=== PATIENT | female | born 1975 | race African-American/Black ===

== ENCOUNTER 2017-03-27 19:09 | Emergency (ER) | payer MEDICAID ==
[~2017-03-27] VITALS: Ht 160 cm; Wt 83.9 kg
[2017-03-27 20:19] LABS: ABSOLUTE BASOPHILS 0.1 thou/uL (0.0-0.2); ABSOLUTE EOSINOPHILS 0.2 thou/uL (0.0-0.7); ABSOLUTE LYMPHOCYTES 2.8 thou/uL (0.8-5.3); ABSOLUTE MONOCYTES 0.4 thou/uL (0.0-1.2); ABSOLUTE NEUTROPHILS 3.1 thou/uL (1.6-8.1); BASOPHILS 1.2 %; EOSINOPHILS 3.2 %; HEMATOCRIT 37.6 % (37.0-47.0); HEMOGLOBIN 12.4 gm/dL (12.0-15.0); MCH 29.4 pg (26.0-34.0); MCV 89.1 fL (80.0-100.0); MONOCYTES 6.6 %; MPV 6.5 fl. (7.2-11.1); NUCLEATED RBCS 0 /100WBC; PLATELET COUNT* 339 thou/uL (150-400); RBC 4.22 mil/uL (4.20-5.00); RDW-CV 13.7 % (10.5-14.5); WBC 6.6 thou/uL (4.0-11.0)
[2017-03-27 20:25] LABS: CALCIUM 8.3 mg/dL (8.5-10.1); CREATININE 0.8 mg/dL (0.6-1.3); POTASSIUM 3.7 mmol/L (3.5-5.1)
[2017-03-27 20:30] LABS: ALBUMIN 3.4 g/dL (3.4-5.0); TOTAL BILIRUBIN 0.2 mg/dL (<0.1-1.0); TOTAL PROTEIN 7.3 g/dL (6.4-8.2)
[2017-03-27 20:33] LABS: INFLUENZA A ANTIGEN None Detected (None Detect); INFLUENZA B ANTIGEN None Detected (None Detect)
[2017-03-27] MEDS ORDERED: PROMETHAZINE/C118 ML PO (20:45)
[2017-03-27] MEDS ORDERED: AMOXICILLIN500 M1 PO (20:45)
[2017-03-27] MEDS ORDERED: MEDROLDOSEPACK PO (20:45)
[2017-03-27 21:33] VITALS: BP 170/100
== END 2017-03-27 21:36 | disposition home or self-care (01) ==
LOC: M.ERS 19:09
PROVIDERS: Personal Emergency Response Attendant
DX: J45.901 Unspecified asthma with (acute) exacerbation (principal); J18.1 Lobar pneumonia, unspecified organism; F17.210 Nicotine dependence, cigarettes, uncomplicated

== ENCOUNTER 2018-04-08 00:46 | Inpatient (IN) | payer OTHER ==
[~2018-04-08] VITALS: Ht 157.5 cm; Wt 82.6 kg
[~2018-04-08 00:46] MED LIST: AMOXICILLIN500 M1 PO; MEDROLDOSEPACK PO; PROMETHAZINE/C118 ML PO
[2018-04-08 00:51] VITALS: BP 122/89
[2018-04-08 01:18] LABS: HEMOGLOBIN 12.5 gm/dL (12.0-15.0); MCH 28.6 pg (26.0-34.0); MCHC 32.1 g/dL (28.0-37.0); MCV 89.1 fL (80.0-100.0); MPV 6.6 fl. (7.2-11.1); NUCLEATED RBCS 0 /100WBC; PLATELET COUNT* 338 thou/uL (150-400); RBC 4.37 mil/uL (4.20-5.00); RDW-CV 13.8 % (10.5-14.5); WBC 20.4 thou/uL (4.0-11.0)
[2018-04-08 01:22] LABS: CALCIUM 9.2 mg/dL (8.5-10.1); CREATININE 1.1 mg/dL (0.6-1.3); POTASSIUM 3.7 mmol/L (3.5-5.1)
[2018-04-08 01:24] LABS: INFLUENZA A ANTIGEN None Detected (None Detect); INFLUENZA B ANTIGEN None Detected (None Detect)
[2018-04-08 01:27] LABS: ALBUMIN 3.3 g/dL (3.4-5.0); TOTAL PROTEIN 7.9 g/dL (6.4-8.2)
[2018-04-08 02:21] LABS: ABSOLUTE BASOPHILS 0.2 thou/uL (0.0-0.2); ABSOLUTE EOSINOPHILS 0.2 thou/uL (0.0-0.7); ABSOLUTE LYMPHOCYTES 1.8 thou/uL (0.8-5.3); ABSOLUTE MONOCYTES 1.6 thou/uL (0.0-1.2); ABSOLUTE NEUTROPHILS 16.5 thou/uL (1.6-8.1); ANISOCYTOSIS Occasional; PLATELET ESTIMATE ADEQUATE; TOXIC GRANULATION 2+
[2018-04-08 03:15] VITALS: BP 119/71
[2018-04-08 04:00] VITALS: BP 122/68
--- NOTE | 2018-04-08 05:00 | NUR ---
PT ADMITTED TO ROOM 205 FROM ER VIA STRETCHER. PT MOVED SELF TO HOSPITAL BED WITHOUT DIFFICULTY. SEARCH ENGINE MARKETING MANAGER APPLIED WITH ALARMS SET. PT ORIENTED TO ROOM, BED AND TV CONTROLS AND CALL SYSTEM, PT VERBALIZED GOOD UNDERSTANDING. O2 2L BNC INTACT. NS INFUSING AT 100CC/HR VIA PUMP. VSS STABLE. PT AAOX4 SKIN W/D ZOHAIB CUTE DISTRESS NOTED WILL CONTINUE TO MONITOR
--- NOTE | 2018-04-08 08:00 | NUR ---
RECEIVED REPORT. ASSUMED CARE OF PT AT 0730. VSS. CARDIAC MONITORING IN PLACE ST WITH BBB. AM ASSESSMENT AND VITALS COMPLETED CAHRTED. PT ALERT AND OEIETNED. PT ON 2L PER NC. PT HAS NPC. PT REPORTS BACK PAIN WITH COUGH PRN PAIN MEDS GIVEN. IVF INFUISNG PER ORDERS. PT UP AD KINGS. CALL LIGHT IS WITHIN REACH. WILL CONTINUE TO MONITOR FOR DURAITON OF SHIFT.
[2018-04-08 08:11] VITALS: BP 133/83
[2018-04-08] MEDS ORDERED: VENTOLIN HFA 1818 GM INH (10:18)
[2018-04-08] MEDS ORDERED: ADVAIR HFA 230M12 GM INH (10:18)
--- NOTE | 2018-04-08 15:36 | EKG ---
[place] [address] ELECTROCARDIOGRAM REPORT Name: RONNA FAY Room: [address] ADM IN .R.#: [id number] Admission: 04/08/18 Attend Phys: Vesta Coombs Discharge: Date of : 73 Report #: [id number] THIS REPORT FOR: //name// [facility] ED Test Date: 2018-04-08 Test Time: 01:04:05 Pat Name: RONNA FAY Department: Room: [facility] Gender: F Manager Molecular: : 1975 Requested By: Sallie Clark Order Number: [id number] MD: Orville Liao Measurements Intervals [place] Rate: 128 P: 59 TN: 126 QRS: 109 QRSD: 137 T: 12 QT: 322 QTc: 470 Interpretive Statements Sinus tachycardia Left atrial enlargement Right bundle branch block Baseline wander in lead(s) V2,V4,V5 No previous ECG available for comparison Electronically Signed On 04-08-2018 15:36:03 COMPOUNDING TECHNICIAN by Orville Liao [email or web address] <ELECTRONICALLY SIGNED> By: Orville Liao MD, [facility] 04/08/18 1536 0104 0104 Orville Liao MD, [facility] /EPI
--- NOTE | 2018-04-08 16:41 | NUR ---
PATIENT TRANSFERRED FROM TELE. AGREE WITH PREVIOUS ASSESSMENT. ALERT AND ORIENTED. DENIES PAIN CURRENTLY. ORIENTED TO NEW ROOM AND ENVIROMENT. IVF INFUSING ORDERED. FAMILY AT BEDSIDE. CALL LIGHT WITHIN REACH. WILL CONTINUE TO MONITOR.
[2018-04-08 17:20] VITALS: BP 150/98
[2018-04-08 21:00] VITALS: BP 132/90
[2018-04-09] VITALS: BP 111/82
[2018-04-09 04:32] LABS: ABSOLUTE EOSINOPHILS 0.1 thou/uL (0.0-0.7); ABSOLUTE LYMPHOCYTES 1.7 thou/uL (0.8-5.3); ABSOLUTE MONOCYTES 0.9 thou/uL (0.0-1.2); ABSOLUTE NEUTROPHILS 6.6 thou/uL (1.6-8.1); BASOPHILS 0.4 %; HEMATOCRIT 31.1 % (37.0-47.0); LYMPHOCYTES 18.5 %; MCH 29.5 pg (26.0-34.0); MCHC 32.9 g/dL (28.0-37.0); MCV 89.7 fL (80.0-100.0); MONOCYTES 9.6 %; MPV 6.8 fl. (7.2-11.1); NUCLEATED RBCS 0 /100WBC; POLYS 70.5 %; RBC 3.47 mil/uL (4.20-5.00); RDW-CV 13.6 % (10.5-14.5); WBC 9.4 thou/uL (4.0-11.0)
[2018-04-09 04:51] LABS: CALCIUM 8.4 mg/dL (8.5-10.1); CREATININE 0.7 mg/dL (0.6-1.3)
[2018-04-09 04:54] LABS: HEMOGLOBIN 10.2 gm/dL (12.0-15.0); PLATELET COUNT* 255 thou/uL (150-400)
[2018-04-09 08:19] VITALS: BP 148/97
[2018-04-09 10:08] LABS: URINE BILIRUBIN NEGATIVE (Negative); URINE BLOOD NEGATIVE (Negative); URINE CLARITY CLEAR; URINE COLOR YELLOW; URINE GLUCOSE-RANDOM NEGATIVE (Negative); URINE KETONES 1+ (Negative); URINE LEUKOCYTES-REFLEX NEGATIVE (Negative); URINE NITRITE-REFLEX NEGATIVE (Negative); URINE PROTEIN NEGATIVE (Negative); URINE SPECIFIC GRAVITY 1.025 (1.005-1.030)
[2018-04-09 11:11] VITALS: BP 148/97
[2018-04-09] MEDS ORDERED: LEVAQUIN 750 M750 MG PO (14:49)
[2018-04-09] MEDS ORDERED: SINGULAIR 10 MG10 M1 PO (14:49)
[2018-04-09] MEDS ORDERED: PREDNISONE 20 M20 MG PO (14:51)
[2018-04-09] MEDS ORDERED: ADVAIR HFA 230M12 GM INH (14:52)
[2018-04-09 15:05] VITALS: BP 148/97
--- NOTE | 2018-04-09 15:54 | NUR ---
ASSUMED CARE OF PT AROUND 0730 THIS AM. REFER TO ASSESSMENT. PT HAD CHEST XRAY AND CT OF CHEST THIS SHIFT. PHYSICIAN REVIEWED AND GAVE ORDERS TO DISCHARGE. PT GIVEN DC INSTRUCTIONS AND VERBALIZES UNDERSTANDING. PT GIVEN FOUR SCRIPTS. NO OTHER CONCERNS AT THIS TIME.
[2018-04-09 19:07] LABS: GLYCOHEMOGLOBIN (HGB A1C) 5.6 % (4.8-5.6)
== END 2018-04-09 15:57 | disposition home or self-care (01) | DRG 871 ==
LOC: M.ERS 00:46 → M.ORTHSURG 02:33 → M.TBA-ER 02:33 → M.2W 03:04 → M.ORTHSURG 16:27
PROVIDERS: Emergency Medicine; Family Medicine; ADMIT Internal Medicine
DX: A41.9 Sepsis, unspecified organism (principal); J15.6 Pneumonia due to other Gram-negative bacteria; J96.00 Acute respiratory failure, unspecified whether with hypoxia or hypercapnia; J45.41 Moderate persistent asthma with (acute) exacerbation; J32.9 Chronic sinusitis, unspecified; I10 Essential (primary) hypertension; F17.210 Nicotine dependence, cigarettes, uncomplicated; S46.811A Strain of other muscles, fascia and tendons at shoulder and upper arm level, right arm, initial encounter; S46.812A Strain of other muscles, fascia and tendons at shoulder and upper arm level, left arm, initial encounter; X58.XXXA Exposure to other specified factors, initial encounter; Y93.89 Activity, other specified; Y92.89 Other specified places as the place of occurrence of the external cause; Y99.8 Other external cause status; Z85.028 Personal history of other malignant neoplasm of stomach; Z79.899 Other long term (current) drug therapy; Z28.21 Immunization not carried out because of patient refusal

== ENCOUNTER 2018-10-08 04:29 | Emergency (ER) | payer OTHER ==
[~2018-10-08] VITALS: Ht 160 cm; Wt 81.7 kg
[~2018-10-08 04:29] MED LIST changes: +ADVAIR HFA 230M12 GM INH; +LEVAQUIN 750 M750 MG PO; +PREDNISONE 20 M20 MG PO; +SINGULAIR 10 MG10 M1 PO; +VENTOLIN HFA 1818 GM INH
[2018-10-08 05:09] LABS: ABSOLUTE EOSINOPHILS 0.2 thou/uL (0.0-0.7); ABSOLUTE LYMPHOCYTES 1.4 thou/uL (0.8-5.3); ABSOLUTE MONOCYTES 0.4 thou/uL (0.0-1.2); ABSOLUTE NEUTROPHILS 3.2 thou/uL (1.6-8.1); BASOPHILS 0.8 %; EOSINOPHILS 3.2 %; HEMATOCRIT 38.4 % (37.0-47.0); HEMOGLOBIN 12.5 gm/dL (12.0-15.0); LYMPHOCYTES 27.3 %; MCHC 32.5 g/dL (28.0-37.0); MCV 86.3 fL (80.0-100.0); MONOCYTES 7.3 %; MPV 6.8 fl. (7.2-11.1); NUCLEATED RBCS 0 /100WBC; PLATELET COUNT* 365 thou/uL (150-400); POLYS 61.4 %; RBC 4.45 mil/uL (4.20-5.00); RDW-CV 14.5 % (10.5-14.5); WBC 5.3 thou/uL (4.0-11.0)
[2018-10-08 05:21] LABS: PROTIME 10.7 Seconds (9.20-11.50)
[2018-10-08 05:27] LABS: ANION GAP 8 mmol/L (7-16); BUN 8 mg/dL (7-18); CALCIUM 8.6 mg/dL (8.5-10.1); CHLORIDE 104 mmol/L (98-107); CO2 26 mmol/L (21-32); CREATININE 0.8 mg/dL (0.6-1.3); GLUCOSE 101 mg/dL (70-99); POTASSIUM 3.7 mmol/L (3.5-5.1); SODIUM 138 mmol/L (136-145)
[2018-10-08 05:38] LABS: ALBUMIN 3.5 g/dL (3.4-5.0); ALKALINE PHOSPHATASE 67 U/L (46-116); NT-PRO BRAIN NAT PEPTIDE 30 pg/mL (<300); SGOT 19 U/L (15-37); SGPT 26 U/L (30-65); TOTAL BILIRUBIN 0.4 mg/dL (<0.1-1.0); TOTAL PROTEIN 7.5 g/dL (6.4-8.2); TROPONIN-I LEVEL <0.06 ng/mL (<0.06)
[2018-10-08] MEDS ORDERED: LOPRESSOR50 PO (06:42)
[2018-10-08] MEDS ORDERED: PREDNISONE50 MG PO (06:42)
[2018-10-08 07:26] VITALS: BP 119/85
--- NOTE | 2018-10-08 15:54 | EKG ---
[place] [address] ELECTROCARDIOGRAM REPORT Name: RONNA FAY Room: 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: [place] : 1975 Requested By: Sallie Clark Order Number: [id number] MD: Dhaval Fuller Measurements Intervals [place] Rate: 101 P: 44 MA: 151 QRS: 86 QRSD: 139 T: 13 QT: 370 QTc: 480 Interpretive Statements Sinus tachycardia Probable left atrial enlargement Right bundle branch block Compared to ECG 04/08/2018 01:04:05 No significant changes noted Electronically Signed On 10-08-2018 15:54:10 CDT by Dhaval Fuller [email or web address] <ELECTRONICALLY SIGNED> By: Dhaval Fuller MD, [facility] 10/08/18 1554 0435 0435 Dhaval Fuller MD, FACC /EPI
--- NOTE | 2018-10-08 15:54 | EKG ---
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: [place] : 1975 Requested By: Sallie Clark Order Number: [id number] MD: Dhaval Fuller Measurements Intervals [place] Rate: 95 P: 12 MA: 150 QRS: 32 QRSD: 140 T: 7 QT: 380 QTc: 478 Interpretive Statements Sinus rhythm Probable left atrial enlargement Right bundle branch block Compared to ECG 04/08/2018 01:04:05 Sinus tachycardia no longer present Electronically Signed On 10-08-2018 15:54:22 CDT by Dhaval Fuller [email or web address] <ELECTRONICALLY SIGNED> By: Dhaval Fuller MD, [facility] 10/08/18 1554 0542 0542 Dhaval Fuller MD, FAC /EPI
== END 2018-10-08 07:26 | disposition home or self-care (01) ==
LOC: M.ERS 04:29
PROVIDERS: Emergency Medicine
DX: J45.901 Unspecified asthma with (acute) exacerbation (principal); F17.210 Nicotine dependence, cigarettes, uncomplicated

== ENCOUNTER 2019-04-28 19:46 | Emergency (ER) | payer OTHER ==
[~2019-04-28] VITALS: Ht 160 cm; Wt 77.1 kg
--- NOTE | ~2019-04-28 | EKG ---
[place] [address] ELECTROCARDIOGRAM REPORT Name: RONNA FAY Room: [facility]#: [id number] Admission: 04/28/19 Attend Phys: Discharge: 04/28/19 Date of : 73 Date of Service: 04/28/192025 Report #: [id number] THIS REPORT FOR: cc: FAM - No family physician/PCP FAM - No family physician/PCP Chavo Tony MD ~ THIS REPORT FOR: //name// [facility] ED Test Date: 2019-04-28 Test Time: 20:26:57 Pat Name: RONNA FAY Department: Room: Gender: F Environmental Designer: [place] : 1975 Requested By: Filiberto Gunter Order Number: [id number] MD: Measurements Intervals [place] Rate: 114 P: 50 SC: 172 QRS: 85 QRSD: 128 T: 22 QT: 331 QTc: 456 Interpretive Statements Sinus tachycardia Probable left atrial enlargement Right bundle branch block ST elevation, consider lateral injury No previous ECG available for comparison [email or web address] By: 2026 [address] [place] /JULIAN
[~2019-04-28 19:46] MED LIST changes: +LOPRESSOR50 PO; +PREDNISONE50 MG PO
[2019-04-28 20:26] LABS: INFLUENZA A ANTIGEN Negative (Negative); INFLUENZA B ANTIGEN Negative (Negative)
[2019-04-28 20:37] LABS: CALCIUM 8.7 mg/dL (8.5-10.1); CREATININE 1.1 mg/dL (0.6-1.3); POTASSIUM 3.9 mmol/L (3.5-5.1)
[2019-04-28 20:42] LABS: ALBUMIN 3.5 g/dL (3.4-5.0); TOTAL BILIRUBIN 0.2 mg/dL (<0.1-1.0); TOTAL PROTEIN 7.4 g/dL (6.4-8.2)
[2019-04-28] MEDS ORDERED: PREDNISONE 20 M20 MG PO (21:59)
[2019-04-28] MEDS ORDERED: ZPAK PO (21:59)
[2019-04-28] MEDS ORDERED: TYLENOL WITH CO1 TA1 PO (21:59)
[2019-04-28] MEDS ORDERED: TESSALON PERLE100 MG PO (22:00)
[2019-04-28 22:32] VITALS: BP 145/78
== END 2019-04-28 22:33 | disposition home or self-care (01) ==
LOC: M.ERS 19:46
PROVIDERS: Physician Assistant
DX: J20.9 Acute bronchitis, unspecified (principal); J45.909 Unspecified asthma, uncomplicated; F17.210 Nicotine dependence, cigarettes, uncomplicated; Z88.0 Allergy status to penicillin

== ENCOUNTER 2021-01-19 13:27 | Emergency (ER) | payer OTHER ==
[~2021-01-19] VITALS: Ht 160 cm; Wt 77.1 kg
[~2021-01-19 13:27] MED LIST changes: +TESSALON PERLE100 MG PO; +TYLENOL WITH CO1 TA1 PO; +ZPAK PO
--- NOTE | 2021-01-19 14:13 | EKG ---
[place] [address] ELECTROCARDIOGRAM REPORT Name: RONNA FAY Room: [facility]#: [id number] Admission: 01/19/21 Attend Phys: Discharge: Date of : 73 Date of Service: 01/19/21 1353 Report #: [id number] THIS REPORT FOR: //name// [facility] ED Test Date: 2021-01-19 Test Time: 13:53:17 Pat Name: RONNA FAY Department: Room: Gender: F [facility] Controller[facility] 1975 Requested By: Darius Bernabe Order Number: [id number] MD: Amaury Cheung Measurements Intervals [place] Rate: 88 P: 26 RI: 141 QRS: 74 QRSD: 136 T: 39 QT: 375 QTc: 454 Interpretive Statements Sinus rhythm Right bundle branch block ST elev, probable normal early repol pattern Compared to ECG 04/28/2019 20:26:57 Sinus tachycardia no longer present Electronically Signed On 01-19-2021 14:12:53 CDT by Amaury Cheung [email or web address] <ELECTRONICALLY SIGNED> By: Amaury Cheung MD, FACC 01/19/21 1412 1353 1353 Amaury Cheung MD, FACC /EPI
[2021-01-19 14:20] LABS: ABSOLUTE EOSINOPHILS 0.2 thou/uL (0.0-0.7); ABSOLUTE LYMPHOCYTES 1.3 thou/uL (0.8-5.3); ABSOLUTE MONOCYTES 0.4 thou/uL (0.0-1.2); ABSOLUTE NEUTROPHILS 3.9 thou/uL (1.6-8.1); BASOPHILS 0.8 %; EOSINOPHILS 2.8 %; HEMATOCRIT 33.7 % (37.0-47.0); HEMOGLOBIN 11.1 gm/dL (12.0-15.0); LYMPHOCYTES 22.8 %; MCH 27.4 pg (26.0-34.0); MONOCYTES 7.3 %; MPV 6.2 fl. (7.2-11.1); NUCLEATED RBCS 0 /100WBC; PLATELET COUNT* 360 thou/uL (150-400); POLYS 66.3 %; RBC 4.06 mil/uL (4.20-5.00); RDW-CV 15.1 % (10.5-14.5); WBC 5.9 thou/uL (4.0-11.0)
[2021-01-19 14:31] LABS: CALCIUM 9.1 mg/dL (8.5-10.1); CREATININE 1.3 mg/dL (0.6-1.3)
[2021-01-19 14:33] LABS: ALBUMIN 3.2 g/dL (3.4-5.0); TOTAL BILIRUBIN 0.3 mg/dL (<0.1-1.0); TOTAL PROTEIN 7.1 g/dL (6.4-8.2)
[2021-01-19] MEDS ORDERED: HYDROCODON-ACE1 EAC7 PO (15:03)
[2021-01-19] MEDS ORDERED: FLEXERIL PO (15:03)
[2021-01-19 16:34] VITALS: BP 169/96
== END 2021-01-19 16:35 | disposition home or self-care (01) ==
LOC: M.ERS 13:27
PROVIDERS: Family Medicine
DX: S30.0XXA Contusion of lower back and pelvis, initial encounter (principal); J45.909 Unspecified asthma, uncomplicated; F17.210 Nicotine dependence, cigarettes, uncomplicated; Z88.0 Allergy status to penicillin; W10.8XXA Fall (on) (from) other stairs and steps, initial encounter; Y93.89 Activity, other specified; Y92.89 Other specified places as the place of occurrence of the external cause; Y99.8 Other external cause status